=== PATIENT | male | born 1960 | race Hispanic/Latino ===

== ENCOUNTER 2022-06-13 | Inpatient (IN) | payer BC ==
[2022-06-13 01:01] LABS: Absolute Lymphocytes (CBC) 1.6 K/uL (0.7-4.9); Hematocrit 44.9 % (39.6-49.0); Lymphocytes % 13.9 % (15.3-44.8); MCV 96.9 fL (80-100); RBC Red Blood Cell Count 4.63 M/uL (4.33-5.43)
[2022-06-13 01:11] LABS: Potassium 3.6 mmol/L (3.5-5.1); Troponin High Sensitivity 13.6 pg/mL (<58.9)
[2022-06-13 03:40] LABS: SARS-CoV-2 Antigen Rapid Res Negative (Negative)
--- NOTE | 2022-06-13 04:49 | ER ---
Nurse's Notes [facility] Name: Tony Pompa Age: 62 yrs Sex: Male : 1960 Arrival Date: 06/13/2022 Time: 00:06 Bed 2 Private MD: Diagnosis: Subsequent non-ST elevation (NSTEMI) myocardial infarction Presentation: 06/13 00:16 Chief complaint: EMS states: Toned out for left sided chest pain 5/10 since 2229, ll3 states pain has improved from 9/10 at home, EMS states pt was in a-fib with HR in 150s for a few moments en route, upon arrival pt HR is 78 and is sinus rhythm on monitor. Coronavirus screen: Vaccine status: Patient reports receiving the 2nd dose of the covid vaccine. At this time, the client does not indicate any symptoms associated with coronavirus-19. Ebola Screen: No symptoms or risks identified at this time. Initial Sepsis Screen: Does the patient meet any 2 criteria? No. Patient's initial sepsis screen is negative. Does the patient have a suspected source of infection? No. Patient's initial sepsis screen is negative. Risk Assessment: Do you want to hurt yourself or someone else? Patient reports no desire to harm self or others. Onset of symptoms was June 12, 2022 at 22:30. Care prior to arrival: Medication(s) given: ASA, 81 mg, x 4, IV initiated. 20 GA, in the left antecubital area. 00:16 Method Of Arrival: EMS: [facility] ll3 00:16 Acuity: DONYA 2 ll3 Triage Assessment: 00:24 General: Appears uncomfortable, Behavior is calm, cooperative. Pain: Complains of pain ll3 in chest Pain does not radiate. Pain currently is 5 out of 10 on a pain scale. Quality of pain is described as pressure, Pain began 2 hours ago. Is continuous. Neuro: Level of Consciousness is awake, alert, obeys commands, Oriented to person, place. Cardiovascular: Reports chest pain, Patient's skin is warm and dry. Rhythm is sinus rhythm Chest pain is described as mild, quality is pressure, is located in left anterior chest wall began suddenly, episodes are continuous. Respiratory: Respiratory effort is even, unlabored, Respiratory pattern is regular, symmetrical. Derm: Skin is pink, warm \T\ dry. Historical: - Allergies: 00:24 No Known Allergies; ll3 - Home Meds: 00:24 clopidogrel oral [Active]; Isosorbide Dinitrate Oral [Active]; ll3 - Immunization history:: Client reports receiving the 2nd dose of the Covid vaccine. - Social history:: Smoking status: Patient reports the use of cigarette tobacco products, smokes one-half pack cigarettes per day. Screenin:36 [facility] ED Fall Risk Assessment (Adult) History of falling in the last 3 months, kl including since admission No falls in past 3 months (0 pts) Confusion or Disorientation No (0 pts) Intoxicated or Sedated No (0 pts) Impaired Gait No (0 pts) Mobility Assist Device Used No (0 pt) Altered Elimination No (0 pt) Score/Fall Risk Level 0 - 2 = Low Risk Oriented to surroundings, Maintained a safe environment. Abuse screen: Denies threats or abuse. Nutritional screening: No deficits noted. Tuberculosis screening: No symptoms or risk factors identified. Assessment: 00:27 General: See triage assessment. ll3 00:35 Reassessment: Patient appears in no apparent distress at this time. Patient and/or family updated on plan of care and expected duration. Pain level reassessed. Patient is alert, oriented x 3, equal unlabored respirations, skin warm/dry/pink. Patient denies pain at this time. 03:31 Reassessment: Patient and/or family updated on plan of care and expected duration. Pain ll3 level reassessed. Patient is alert, oriented x 3, equal unlabored respirations, skin warm/dry/pink. Patient denies pain at this time. Vital Signs: 00:16 BP 127 / 80; Pulse 77; Resp 14; Temp 98.7(O); Pulse Ox 96% on R/A; Weight 90.72 kg (R); ll3 Height 5 ft. 10 in. (177.80 cm) (R); Pain 5/10; 00:35 BP 131 / 85; Pulse 81; Resp 16; kl 01:45 BP 116 / 77; Pulse 76; Resp 14; Pulse Ox 93% on R/A; ll3 02:30 BP 105 / 69; Pulse 70; Resp 16; Pulse Ox 93% on R/A; ll3 03:29 BP 118 / 70; Pulse 62; Resp 15; Pulse Ox 91% on R/A; ll3 00:16 Body Mass Index 28.70 (90.72 kg, 177.80 cm) ll3 ED Course: 00:06 Patient arrived in ED. mw2 00:06 Vinnie Herrera MD is Attending Physician. bs3 00:23 Triage completed. ll3 00:24 Arm band placed on Patient placed in an exam room, on a stretcher, on satellite project site monitor, ll3 on pulse oximetry. EKG completed in triage. Results shown to MD. 00:34 Basic Metabolic Panel Sent. kl 00:34 CBC with Diff Sent. kl 00:35 Troponin HS Sent. kl 00:51 XRAY Chest (1 view) In Process Unspecified. EDMS 04:06 Tawana Mcgill RN is Primary Nurse. ll3 04:48 Nathaly Walter MD is Hospitalizing Provider. bs3 06:02 No provider procedures requiring assistance completed. Patient admitted, IV remains in ll3 place. 06:03 Patient has correct armband on for positive identification. Placed in gown. Bed in low ll3 position. Call light in reach. Side rails up X 1. Adult w/ patient. 07:27 Primary Nurse role handed off by Tawana Mcgill RN kj1 07:30 Renetta Garcia RN is Primary Nurse. ld1 10:45 Attending Physician role handed off by Vinnie Herrera MD ld1 Administered Medications: 04:58 Drug: Lovenox (enoxaparin) 1 mg/kg Route: Sub-Q; Site: abdomen; ll3 Medication: 06:03 VIS not applicable for this client. ll3 Outcome: 04:49 Decision to Hospitalize by Provider. bs3 06:02 Admitted to ER Hold. Please see [facility] for further documentation. ll3 06:02 Condition: stable 06:02 Instructed on the need for admit. 10:42 Patient left the ED. ld1 11:29 Patient left the ED. iw Signatures: Dispatcher [employer] EDRosa Eubnaks RN RN kl Williams, Irene, RN RN Gomez Dasilva mw2 Cat Alvarado kj1 Renetta Garcia RN RN ld1 Tawana Mcgill RN RN ll3 Vinnie Herrera MD MD bs3 Corrections: (The following items were deleted from the chart) 03:24 03:08 SARS-COV-2 RT PCR+MOL.LAB.KIMBERLY drawn and sent. homero PENA
--- NOTE | 2022-06-13 04:49 | EDPHYS ---
Physician Documentation [facility] Name: Tony Pompa Age: 62 yrs Sex: Male : 1960 Arrival Date: 06/13/2022 Time: 00:06 Bed 2 Private MD: ED Physician HPI: 06/13 00:24 This 62 yrs old Male presents to ER via EMS with complaints of chestpain. bs3 00:24 He has a history of of a heart problem for which she takes clopidogrel but denies any bs3 stent which was prescribed in [place] who is presenting with chest pain and palpitations that started when he was at rest lying down in bed he notes that over time his symptoms have gotten better he was given aspirin by EMS and then brought here he notes that his chest pain went from a 7 to a 4 currently he denies associated nausea vomiting diaphoresis the pain is on the left side of his chest that does not radiate to his back he denies associated numbness tingling or weakness he has had similar symptoms before. per EMS pt was in rapid afib for seconds. Historical: - Allergies: 00:24 No Known Allergies; ll3 - Home Meds: 00:24 clopidogrel oral [Active]; Isosorbide Dinitrate Oral [Active]; ll3 - Immunization history:: Client reports receiving the 2nd dose of the Covid vaccine. - Social history:: Smoking status: Patient reports the use of cigarette tobacco products, smokes one-half pack cigarettes per day. ROS: 00:24 Constitutional: Negative for fever, chills Eyes: Negative for injury, pain, redness, bs3 and discharge, ENT: Negative for injury, pain, and discharge, Neck: Negative for injury, pain, and swelling, Respiratory: Negative for shortness of breath, cough, wheezing Abdomen/GI: Negative for abdominal pain, nausea, vomiting, diarrhea MS/Extremity: Negative for injury and deformity, Neuro: Negative for headache, weakness, numbness, tingling, and seizure, Psych: Negative for depression, anxiety, suicide ideation, homicidal ideation, and hallucinations, Hematologic/Lymphatic: Negative for swollen nodes, abnormal bleeding Exam: 00:24 Constitutional: This is a well developed, well nourished patient who is awake, alert, bs3 and in no acute distress. Head/Face: Normocephalic, atraumatic. Eyes: Pupils equal round and reactive to light, extra-ocular motions intact. Lids and lashes normal. ENT: mmm, no posterior phyarngeal erythema Neck: Trachea midline, no thyromegaly, no neck stiffness Chest/axilla: Normal chest wall appearance and motion. Nontender with no deformity. No lesions are appreciated. Cardiovascular: Regular rate and rhythm with a normal S1 and S2. symmetric pulses in upper extremities Respiratory: Lungs have equal breath sounds bilaterally, clear to auscultation, no respiratory distress Abdomen/GI: Soft, non-tender, no rebound or guarding MS/ Extremity: Pulses equal, no cyanosis. Neurovascular intact. Full, normal range of motion. Neuro: Awake and alert, GCS 15, oriented to person, place, time, and situation. Cranial nerves II-XII grossly intact. Motor strength 5/5 in all extremities. Sensory grossly intact. Psych: Awake, alert, with orientation to person, place and time. Behavior, mood, and affect are within normal limits. Vital Signs: 00:16 BP 127 / 80; Pulse 77; Resp 14; Temp 98.7(O); Pulse Ox 96% on R/A; Weight 90.72 kg (R); ll3 Height 5 ft. 10 in. (177.80 cm) (R); Pain 5/10; 00:35 BP 131 / 85; Pulse 81; Resp 16; kl 01:45 BP 116 / 77; Pulse 76; Resp 14; Pulse Ox 93% on R/A; ll3 02:30 BP 105 / 69; Pulse 70; Resp 16; Pulse Ox 93% on R/A; ll3 03:29 BP 118 / 70; Pulse 62; Resp 15; Pulse Ox 91% on R/A; ll3 00:16 Body Mass Index 28.70 (90.72 kg, 177.80 cm) ll3 MDM: 00:06 Patient medically screened. bs3 00:24 Differential diagnosis: acute myocardial infarction, acute pericarditis, coronary bs3 artery disease chest wall pain, stable angina, thoracic aortic disection, unstable angina. HEART Score: History: Moderately Suspicious (1), ECG: Non specific repolarization disturbance / LBTB / PM (1), Age: > 45 and < 65 years (1), Risk Factors: 1 or 2 risk factors (1), Troponin: < or = 1 x Normal Limit (0), Total Score = 4. Data reviewed: vital signs, nurses notes, EMS record. Consideration of Admission/Observation Patient was admitted/placed on observation. Management of patient was discussed with the following: Hospitalist: agree with plan. Independent interpretation of the following test(s) in the Emergency Department EKG: See my EKG interpretation above X-Ray: My interpretation is no pneumothorax. ED course: received ems strip, concering for afib, pt not on ac, given rapid afib, heart score of 4, will admit for further workup. . ED course: I reviewed the tele strip on the monitor, here he is nsr at 75. ED course: ecg nsr [address] elevation or depression qtc 431 as read by myself. . 03:18 ED course: initial workup non diagnostic and patient pain free. 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 ED course: Will repeat trop, if elevated, will admit, otherwise, will dc, chadsvasc2 of 0, pt on clopidogrel for thick blood per at bedside who agrees with plan. . 03:49 Data reviewed: lab test result(s), cardiac enzymes, troponin i, CBC, electrolytes, bs3 hepatic panel, radiologic studies, plain films. 04:47 ED course: repeat trop markedly elevated pt pain free, d/w patient who will stay, will bs3 start lovenox. ED course: pt received aspirin 325pta with ems.. 06/13 00:23 Order name: Basic Metabolic Panel; Complete Time: 02:34 bs3 06/13 00:23 Order name: CBC with Diff; Complete Time: 02:34 bs3 06/13 00:23 Order name: Troponin HS; Complete Time: 02:34 bs3 06/13 03:09 Order name: Troponin High Sensitivity; Complete Time: 05:14 ll3 06/13 03:24 Order name: SARS-COV-2 Antigen Rapid; Complete Time: 03:48 EDMS 06/13 00:23 Order name: XRAY Chest (1 view) bs3 06/13 00:23 Order name: EKG; Complete Time: 00:24 bs3 06/13 00:23 Order name: Cardiac monitoring; Complete Time: 00:27 bs3 06/13 00:23 Order name: EKG - Nurse/Tech; Complete Time: 00:27 bs3 06/13 00:23 Order name: IV Saline Lock; Complete Time: 00:27 bs3 06/13 10:00 Order name: Protime (+INR) EDMS 06/13 10:00 Order name: PTT, Activated Partial Thromb EDMS 06/13 00:23 Order name: Labs collected and sent; Complete Time: 00:34 bs3 06/13 00:23 Order name: O2 Per Protocol; Complete Time: 00:27 bs3 06/13 00:23 Order name: O2 Sat Monitoring; Complete Time: 00:27 bs3 Administered Medications: 04:58 Drug: Lovenox (enoxaparin) 1 mg/kg Route: Sub-Q; Site: abdomen; ll3 Disposition Summary: 06/13/22 04:49 Hospitalization Ordered Hospitalization Status: Inpatient Admission bs3 Provider: Nathaly Walter bs3 Condition: Fair bs3 Problem: new bs3 Symptoms: are unchanged bs3 Bed/Room Type: Standard bs3 Location: Telemetry/MedSurg (Inpatient)(06/13/22 07:38) dw Room Assignment: 220(06/13/22 07:38) dw Diagnosis - Subsequent non-ST elevation (NSTEMI) myocardial infarction bs3 Forms: - Medication Reconciliation Form bs3 - SBAR form bs3 Signatures: Dispatcher [employer] EDMS Jessica Espana RN RN dw Garcia, Cindy, RN RN Tawana Shanks RN RN 3 Vinnie Herrera MD MD bs3 Cindy Ravi PA-C PAEddie sb4 Corrections: (The following items were deleted from the chart) 03:24 02:36 SARS-COV-2 RT PCR+MOL.LAB.BRZ ordered. EDMS EDMS 05:44 04:49 Telemetry/MedSurg (Inpatient) bs3 cg 05:44 04:49 bs3 cg 07:38 05:44 BR ER HOLD cg dw 07:38 05:44 ERHOLD- cg dw
--- NOTE | 2022-06-13 04:54 | P.HP ---
Certification for Inpatient Patient admitted to: Inpatient With expected LOS: <2 Midnights Patient will require the following post-hospital care: None Practitioner: I am a practitioner with admitting privileges, knowledge of patient current condition, hospital course, and medical plan of care. Services: Services provided to patient in accordance with Admission requirements found in Title 42 Section 412.3 of the Code of Federal Regulations Patient History Date of Service: 06/13/22 Reason for admission: NSTEMI History of Present Illness: Patient is a 62-year-old male with past medical history of hypertension and tobacco abuse who presented to the emergency department with complaints of left- sided chest pain. EMS administered aspirin and nitro prior to arrival. They did record on EKG a brief episode of A. fib RVR although patient has been NSR in the emergency department. Patient states that he takes Plavix daily prescribed by his doctor in [place] for "thick blood" and he is a daily smoker. He has had episodes of A. fib in the past, but he reports that they were always associated with him drinking alcohol and he does not drink anymore. His initial troponin was within normal limits but 3-hour repeat was elevated 105. He was given Lovenox in the emergency department. He will be admitted for further management. Allergies No Known Drug Allergies Allergy (Unverified 08/29/14 20:59) Unknown Home medications list reviewed: Yes Home Medications: NK [No Home Meds] 08/20/14 - Past Medical/Surgical History Diabetic: No -: Hypertension -: Hernia Repair Psychosocial/ Personal History: Patient is . - Family History Father -: Hypertension - Social History Smoking Status: Current every day smoker Alcohol use: No CD- Drugs: No Caffeine use: No Place of Residence: Home Review of Systems Cardiovascular: Chest Pain Physical Examination - Vital Signs Temperature: 98.7 F Blood Pressure: 118/70 Pulse: 62 Respirations: 15 Pulse Ox (%): 91 - Physical Exam General: Alert, In no apparent distress HEENT: Atraumatic, PERRLA, EOMI, Sclerae nonicteric Neck: Supple, 2+ carotid pulse no bruit, No LAD, Without JVD or thyroid abnormality Respiratory: Clear to auscultation bilaterally, Normal air movement Cardiovascular: Regular rate/rhythm, Normal S1 S2 Gastrointestinal: Normal bowel sounds, No tenderness Musculoskeletal: No tenderness Integumentary: No rashes Neurological: Normal speech, Normal strength at 5/5 x4 extr, Normal tone, Normal affect - Studies Laboratory Data (last 24 hrs) 06/13/22 00:25: WBC 11.60 H, Hgb 14.9, Hct 44.9, Plt Count 256 06/13/22 00:25: Sodium 143, Potassium 3.6, BUN 10, Creatinine 0.67 L, Glucose 147 H Assessment and Plan - Problems (Diagnosis) (1) NSTEMI (non-ST elevated myocardial infarction) Current Visit: Yes Status: Acute (2) Hypertension Current Visit: Yes Status: Chronic Qualifiers: Hypertension type: primary hypertension Qualified Code(s): I10 - Essential (primary) hypertension (3) Tobacco abuse Current Visit: Yes Status: Chronic - Plan Patient is admitted for further management of NSTEMI. Troponin elevated at 105. EKG with NSR although EMS recorded brief episode of afib RVR. Cardiology consult. NPO in case for cardiac cath. Patient has NOT had a cardiac work up in the past or seen a epic kaleidoscope analyst. Lovenox q12h. Aspirin and atorvastatin daily. Echo ordered. Check lipid panel and TSH. Tobacco cessation counseling. NicoDerm patch provided. Monitor and replete electrodes per protocol. Reconcile and continue home medications. Full code. Discharge Plan: Home Plan to discharge in: 48 Hours - Advance Directives Does patient have a Living Will: No Does patient have a Durable POA for Healthcare: No - Code Status/Comfort Care Code Status Assessed: Yes Code Status: Full Code Physician Review: Patient Assessed, Agree with Above Assessment and Plan Critical Care: No Time Spent Managing Pts Care (In Minutes): 50
[2022-06-13] MEDS ORDERED: ENOXAPARIN 100 MG/ML SYR SQ ONE (04:55)
[2022-06-13] MEDS ORDERED: ONDANSETRON 4 MG/2 ML VIAL IV PRN (06:04)
[2022-06-13 06:06] VITALS: BMI 28.7
[2022-06-13] MEDS ORDERED: ASPIRIN EC 81 MG TAB PO SCH (09:00)
[2022-06-13] MEDS ORDERED: LIDOCAINE 1% 20 ML MDV ONE (09:17)
[2022-06-13] MEDS ORDERED: HEPA 1000U/500MLS 2,000 UNIT/1,000 ML BAG IV ONE (09:17)
[2022-06-13 10:00] LABS: Protime INR 1.13
[2022-06-13] MEDS ORDERED: MIDAZOLAM HCL 2 MG/2 ML INJ ONE (10:48)
[2022-06-13] MEDS ORDERED: FENTANYL CITR 100 MCG/2 ML ONE (10:48)
[2022-06-13] MEDS ORDERED: HEPARIN 10,000 UNIT/10 ML VIAL IV ONE (10:49)
[2022-06-13] MEDS ORDERED: HEPARIN 5000 UNIT/ML 1 ML VIAL ONE (10:49)
[2022-06-13] MEDS ORDERED: VERAPAMIL HCL 10 MG/4 ML VIAL IV ONE (10:49)
[2022-06-13] MEDS ORDERED: NITROGLYCERIN 100 MCG/ML SYR (for cath lab use only) IV ONE (10:50)
[2022-06-13] MEDS ORDERED: ATROPINE SULF 1 MG/10 ML SYR IV ONE (10:50)
[2022-06-13] MEDS ORDERED: NITROGLYCERIN/D5W 25 MG/250 ML BTL IV ONE (10:50)
[2022-06-13] MEDS: ENOXAPARIN 100 MG/ML SYR SQ SCH (11:01)
[2022-06-13] MEDS ORDERED: NA CHLORIDE 0.9% 500 ML ONE (11:23)
[2022-06-13] MEDS ORDERED: NITROGLYCERIN 0.4 MG/TAB SL PRN (16:00)
[2022-06-13 16:01] VITALS: O2SAT 96
[2022-06-13] MEDS ORDERED: ACETAMINOPHEN 325 MG TABLET PO PRN (16:01)
[2022-06-13] MEDS ORDERED: HEPARIN/D5W 25,000 UNIT/500 ML BAG IV PRN (17:00)
--- NOTE | 2022-06-13 18:07 | CON ---
Date of Consultation: 06/13/2022 Reason For Consultation: Chest pain with elevated troponin. History Of Present Illness: A 62-year-old male, history of hypertension, active smoker, presented wi th chest pain, left-sided, pressure-like, radiates to the left neck and left upper extremity, related to exertion. Does not have any nausea, vomiting, or diaphoresis. No other complaints. First cardi ac enzymes were elevated. Past Medical History: Hypertension. Medications: Refer to reconciliation sheet for detailed list. Allergies: NO KNOWN DRUG ALLERGIES. Family History: No premature coronary artery disease or cancer. Social History: He is an active smoker, pack per day. Does not drink or use any drugs. Review of Systems: All systems reviewed and they were negative except what mentioned in HPI. Physical Examination: Vital Signs: Temperature is 97.9, pulse 60, breathing at 16, blood pressure is 135/69, saturating 94 % on room air. General: Pleasant middle-aged male, in no apparent distress. Head and Neck: Pupils are equal, reactive to light. Intact eye movements. No JVD. No cervical lym phadenopathy. Neck is supple. Thyroid is not enlarged. Lungs: Clear to auscultation bilaterally. No rhonchi, wheezing, or crackles. No accessory muscle u se. Heart: Regular rate and rhythm. No extra sounds. Abdomen: Soft, nontender. Bowel sounds positive. No organomegaly. No masses or hernia. No rigidi ty or rebound. Extremities: No edema, clubbing, or cyanosis. Intact pulses. Skin: No rash. Neurologic: Alert, awake, oriented x3. No acute focal deficits appreciated. Investigations: BUN 10, creatinine 0.67, and troponin 105. Assessment And Recommendations: 1.Non-ST elevation myocardial infarction. The patient is n.p.o. We will take him to brush clearing laborer for c oronary angiogram with further plan accordingly. 2.Hypertension. Blood pressure is well controlled. Continue home medications. 3.Active smoker. The patient was counseled to quit smoking in details. SR/MODL Voice ID: [id number] Report ID: [id number]
--- NOTE | 2022-06-13 18:29 | OP ---
Date of Procedure: 06/13/2022 Surgeon: LEOLA VICENTE Procedures Performed: 1.Selective coronary angiogram. 2.Left heart catheterization. Indication: Non-ST elevation myocardial infarction. Access: Right radial artery 6-Finnish closed with TR band. Complications: None. Bleeding: Less than 10 mL. Anesthesia: Total sedation time was 30 minutes, used fentanyl and Versed. Description Of Procedure: After risks, benefits, alternatives were explained, the patient agreed to procedure and signed informed consent. The patient was [facility], prepped and draped in the usual sterile fashion. Then, I accessed right radial artery using pediatric micropuncture kit, placed 6-Finnish Slender sheath and took 5-Finnish Olcott 4.0 catheter into the aortic root, engaged left main and right coronary artery, took standard views and then catheter was pushed over the wire into the LV, measured the LVEDP and pullback did not record any gradient. T hen, I removed the catheter and sheath, placed TR band with good hemostasis. Findings: 1.Left main; large and normal. 2.LAD; large vessel with proximal 80% stenosis and then extends into the mid segment, very long segm ent that has 80% diffuse disease and diagonal 1 branch has proximal 70% stenosis. The rest of the LA D appears normal. 3.Left circumflex; mid 99% to 100%, probably the culprit for the NJ and collaterals from the RCA. O M branch appears normal. 4.RCA; proximal 90% stenosis and the artery becomes aneurysmal for short segment and then in the mid segment, there was a 70% stenosis and is large and dominant. 5.LVEDP normal at 10 mmHg. Conclusion: 1.Severe multivessel coronary artery disease. 2.Normal LVEDP. Recommendations: Transfer for coronary artery bypass surgery. SR/MODL Voice ID: [id number] Report ID: [id number]
[2022-06-13] MEDS ORDERED: NA CHLORIDE 0.9% 1,000 ML IV SCH (21:00)
[2022-06-13] MEDS ORDERED: ATORVASTATIN 40 MG TAB PO SCH (21:00)
--- NOTE | 2022-06-13 21:17 | P.DS ---
Admission Date: 06/13/22 Discharge Date: 06/13/22 Disposition: TRANSFER TO [facility] Comment: NORMA Arcos Discharge Condition: SERIOUS Reason for Admission: NSTEMI Consultations: Cardiology- Dr. Austin Procedures: Selective Coronary Angiogram & Left Heart Catheterization - Problems (1) NSTEMI (non-ST elevated myocardial infarction) Current Visit: Yes Status: Acute (2) Hypertension Current Visit: Yes Status: Chronic Qualifiers: Hypertension type: primary hypertension Qualified Code(s): I10 - Essential (primary) hypertension (3) Tobacco abuse Current Visit: Yes Status: Chronic Brief History of Present Illness: Patient is a 62-year-old male with past medical history of hypertension and tobacco abuse who presented to the emergency department with complaints of left- sided chest pain. EMS administered aspirin and nitro prior to arrival. They did record on EKG a brief episode of A. fib RVR although patient has been NSR in the emergency department. Patient states that he takes Plavix daily prescribed by his doctor in [place] for "thick blood" and he is a daily smoker. He has had episodes of A. fib in the past, but he reports that they were always associated with him drinking alcohol and he does not drink anymore. His initial troponin was within normal limits but 3-hour repeat was elevated 105. He was given Lovenox in the emergency department. He will be admitted for further management. Hospital Course: Patient underwent selective coronary angiogram & left heart catheterization and was found to have severe multivessel coronary artery disease. Cardiology recommended transfer for coronary artery bypass surgery. NORMA Hidalgo accepted patient with cardiothoracic surgeon Dr. Barragan and hospitalist Dr. Mccullough, whom I spoke with. Patient is stable for transfer. Vital Signs/Physical Exam: Temp Pulse Resp BP Pulse Ox 97.9 F 60 16 135/69 93 06/13/22 16:00 06/13/22 16:00 06/13/22 16:00 06/13/22 16:00 06/13/22 16:00 Laboratory Data at Discharge: WBC 11.60 K/uL (4.3-10.9) H 06/13/22 00:25 Hgb 14.9 g/dL (13.6-17.9) 06/13/22 00:25 Hct 44.9 % (39.6-49.0) 06/13/22 00:25 Plt Count 256 K/uL (152-406) 06/13/22 00:25 PT 12.4 SECONDS (9.5-12.5) 06/13/22 09:40 INR 1.13 06/13/22 09:40 APTT 37.1 SECONDS (24.3-36.9) H 06/13/22 09:40 Sodium 143 mmol/L (136-145) 06/13/22 00:25 Potassium 3.6 mmol/L (3.5-5.1) 06/13/22 00:25 BUN 10 mg/dL (7-18) 06/13/22 00:25 Creatinine 0.67 mg/dL (0.70-1.30) L 06/13/22 00:25 Glucose 147 mg/dL (74-106) H 06/13/22 00:25 Home Medications: NK [No Home Meds] 08/20/14
[2022-06-13 22:00] VITALS: BP 146/69; TEMP 97.6
--- NOTE | 2022-06-14 07:34 | ECHO ---
HEIGHT: 5 ft 10 in WEIGHT: 200 lb 0 oz DATE OF STUDY: 06/13/[address]: Cindy Ravi 2-DIMENSIONAL: YES M.MODE: YES DOPPLER: YES COLOR FLOW: YES TDS: NO PORTABLE: YES DEFINITY: NO BUBBLE STUDY: NO DIAGNOSIS: NSTEMI CARDIAC HISTORY: CATHERIZATION: SURGERY: PROSTHETIC VALVE: PACEMAKER: MEASUREMENTS (cm) DIASTOLIC (NORMALS) SYSTOLIC (NORMALS) IVSd 1.0 (0.6-1.2) LA Diam 4.0 (1.9-4.0) LVEF 63% LVIDd 4.3 (3.5-5.7) LVIDs 2.9 (2.0-3.5) %FS 34% LVPWd 1.0 (0.6-1.2) Ao Diam 3.1 (2.0-3.7) 2 DIMENSIONAL ASSESSMENT: RIGHT ATRIUM: NORMAL LEFT ATRIUM: ENLARGED RIGHT VENTRICLE: NORMAL LEFT VENTRICLE: NORMAL TRICUSPID VALVE: MILD TR MITRAL VALVE: NORMAL PULMONIC VALVE: NORMAL AORTIC VALVE: NORMAL PERICARDIAL EFFUSION: NONE AORTIC ROOT: NORMAL LEFT VENTRICULAR WALL MOTION: NORMAL DOPPLER/COLOR FLOW: MILD TRICUSPID REGURGITATION. COMMENTS: 1. NORMAL LEFT VENTRICULAR EJECTION FRACTION 60-65%. 2. NORMAL WALL MOTION. 3. LEFT ATRIAL ENLARGEMENT. 4. MILD TRICUSPID REGURGITATION. 5. NORMAL DIASTOLIC FUNCTION. TECHNOLOGIST: Laura SEYMOUR
--- NOTE | 2022-06-14 09:52 | RAD REPORT ---
EXAM DESCRIPTION: Chest Single View CLINICAL HISTORY: 62-year-old male with chest pain. TECHNIQUE: Single view, AP portable chest was obtained. COMPARISON: None. FINDINGS: Unremarkable cardiac and mediastinal silhouette. Heart size is normal. Diffuse nonspecific interstitial prominence may be seen with mild vascular congestion, viral/atypical infectious process and vascular crowding secondary to low lung volumes. Low lung volumes otherwise grossly clear without focal opacity, pneumothorax or pleural effusions. The visualized bones are within normal limits. IMPRESSION: Diffuse nonspecific interstitial prominence may be seen with mild vascular congestion, v iral/atypical infectious process and vascular crowding secondary to low lung volumes. Electronically signed by: Mireya Parsons MD 06/13/2022 12:58 AM SPOUT WORKER Due to temporary technical issues with the PACS/Fluency reporting system, reports are being signed by the in house radiologists without review as a courtesy to insure prompt reporting. The interpreting radiologist is fully responsible for the content of the report.
--- NOTE | 2022-06-14 13:19 | EKG ---
Test Date: 2022-06-13 Test Time: 00:11:11 Hydraulic Barker Operator: EH MEASUREMENT RESULTS: Intervals: Rate: 79 WY: 164 QRSD: 74 QT: 376 QTc: 431 [place]: P: 56 W[place]: 164 QRS: -40 T: 37 INTERPRETIVE STATEMENTS: Normal sinus rhythm Left axis deviation Abnormal ECG Compared to ECG 08/20/2014 04:52:32 Left-axis deviation now present Ventricular premature complex(es) no longer present ST (T wave) deviation no longer present Electronically Signed On 06-14-22 13:16:20 HUMAN RESOURCES TRAINING MANAGER by Ray Austin
== END 2022-06-13 23:15 | disposition short-term general hospital (02) | DRG 282 ==
LOC: ER → ERHOLD 04:49 → 2ND 07:53
PROVIDERS: ADMIT Hospitalist; ATTEND Hospitalist
PROC: 4A023N7 Measurement of Cardiac Sampling and Pressure, Left Heart, Percutaneous Approach (ICD-10-PCS; principal; 2022-06-13)
PROC: B201YZZ Plain Radiography of Multiple Coronary Arteries using Other Contrast (ICD-10-PCS; 2022-06-13)
PROC: B205YZZ Plain Radiography of Left Heart using Other Contrast (ICD-10-PCS; 2022-06-13)
DX: I21.4 Non-ST elevation (NSTEMI) myocardial infarction (principal); I25.10 Atherosclerotic heart disease of native coronary artery without angina pectoris; I25.82 Chronic total occlusion of coronary artery; I10 Essential (primary) hypertension; I48.91 Unspecified atrial fibrillation; F17.210 Nicotine dependence, cigarettes, uncomplicated; Z71.6 Tobacco abuse counseling; Z79.02 Long term (current) use of antithrombotics/antiplatelets; Z20.822 Contact with and (suspected) exposure to COVID-19; Z82.49 Family history of ischemic heart disease and other diseases of the circulatory system
CPT/HCPCS: 36415; 71045; 76937; 80048; 84484; 85025; 85610; 85730; 87811; 93005; 93306; 93458; 96372; 99285; C1893; J0461; J1644; J1650; J2001; J2250; J3010; J7040; Q9966